=== PATIENT | male | born 1955 | race Caucasian/White ===

== ENCOUNTER 2023-12-16 19:55 | Emergency (ER) | payer MEDICARE ==
[2023-12-16 21:49] VITALS: TEMP 98.5
[2023-12-16] MEDS ORDERED: DUONEB 0.5-3 MG/3 ml Neb IH ONE (21:57)
[2023-12-16] MEDS ORDERED: Sodium Chloride 0.9% 1000 ML 0 ML ONE (22:00)
[2023-12-16] MEDS ORDERED: solu-MEDROL ONE ×2 (22:00→23:01)
[2023-12-16] MEDS ORDERED: Zithromax 500 MG/ 250 ML NaCl Premix 0 MG/0 ML IVPB IV ONE (22:00)
[2023-12-16] MEDS ORDERED: Sterile H2O 10 ml IJ ONE ×2 (22:00→23:01)
[2023-12-16] MEDS: DUONEB 0.5-3 MG/3 ml Neb IH ONE (22:02)
[2023-12-16 22:35] LABS: INFLUENZA B NEGATIVE (NEGATIVE); RESPIRATORY SYNCTIAL VIRUS NEGATIVE (NEGATIVE); SARS-CoV-2 Xpert Express NEGATIVE (NEGATIVE)
[2023-12-16 22:48] LABS: INFLUENZA A POSITIVE (NEGATIVE)
--- NOTE | 2023-12-16 22:54 | ERPHSYRPT ---
- History of Present Illness Time Seen by Provider: 12/16/23 21:19 Source: patient Exam Limitations: no limitations Patient Subjective Stated Complaint: family member I have been around has the flu and now I have body aches, cough, fever, tired Triage Nursing Assessment: Pt ambulated to room. Respirations unlabored. Skin color WNL for race. Pt has intermittent dry nonproductive cough. Lung sounds diminished but clear. Physician History: Patient is here for cough, cold, congestion. Has been going on for 48 hours. Also complains of bodyaches, fever. Patient is continue to smoke cigarettes. Smoked a half a pack of cigarettes today. Patient's grandson tested positive for influenza A today. Therefore they would like him evaluated.Minimal wheezing as I walk in the room. 94% on room air. Sinus rhythm on the monitor Allergies/Adverse Reactions: acetaminophen [From Theraflu Flu-Chest Congestion] Allergy (Mild, Verified 12/16/23 21:19) Itching guaifenesin [From Theraflu Flu-Chest Congestion] Allergy (Mild, Verified 12/16/23 21:19) Itching sulfamethoxazole [From Bactrim] Allergy (Mild, Verified 12/16/23 21:19) Rash trimethoprim [From Bactrim] Allergy (Mild, Verified 12/16/23 21:19) Rash Hx Influenza Vaccination/Date Given: Yes Immunizations Up to Date: Yes Travel Risk - International Travel Have you traveled outside of the country in past 3 weeks: No - Coronavirus Screening Are you exhibiting any of the following symptoms?: Yes Symptoms: Fever, Cough: New Onset, Headaches/Body Aches/Fatigue Close contact with a COVID-19 positive Pt in past 14-21 Days: No - Vaccine Status Have you recieved a Covid-19 vaccination: Yes 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 - Vaccination Dates Dates if Unknown: unknown - Past Medical History Pertinent Past Medical History: Yes Neurological History: TIA ENT History: Cataracts Cardiac History: Arrhythmia, Coronary Artery Disease, Deep Vein Thrombosis, Hypertension, Myocardial Infarction ([place]), Other Respiratory History: Bronchitis, COPD, Pneumonia, Sleep Apnea Endocrine Medical History: No Pertinent History Musculoskeletal History: Rheumatoid Arthritis GI Medical History: No Pertinent History History: Renal Disease Psycho-Social History: No Pertinent History Male Reproductive Disorders: No Pertinent History Other Medical History: chronic hyponatremia, stage 3 CKD, afib, heart murmur - Past Surgical History Past Surgical History: Yes Neuro Surgical History: No Pertinent History Cardiac: Cardiac Catheterization Respiratory: No Pertinent History Gastrointestinal: No Pertinent History Genitourinary: No Pertinent History Musculoskeletal: No Pertinent History Male Surgical History: No Pertinent History - Social History Smoking Status: Current every day smoker How long have you smoked: 52 years Exposure to second hand smoke: Yes Drug Use: none Patient Lives Alone: No - Nursing Vital Signs Nursing Vital Signs: Initial Vital Signs Temperature 98.5 F 12/16/23 21:29 Pulse Rate 80 12/16/23 21:29 Respiratory Rate 20 12/16/23 21:29 Blood Pressure 175/104 12/16/23 21:29 O2 Sat by Pulse Oximetry 93 L 12/16/23 21:29 Pain Scale Pain Intensity 0 - Physical Exam SpO2 Interpretation: normal SpO2: 94 Comments: 12/17/23 00:03 Review of Systems Constitutional: Fever, cough, cold, congestion Respiratory: Negative for shortness of breath. Cardiovascular: Negative for chest pain. Gastrointestinal: Negative for abdominal pain. Genitourinary: Negative for dysuria. Musculoskeletal: Negative for back pain. Skin: Negative for rash. Neurological: Negative for headaches. Psychiatric/Behavioral: Negative for behavioral problems. All other systems reviewed and are negative. Physical Exam Vitals signs and nursing note reviewed. Constitutional: Appearance: Patient is well-developed. HENT: Head: Normocephalic and atraumatic. Eyes: Conjunctiva/sclera: Conjunctivae normal. Neck: Musculoskeletal: Normal range of motion. Trachea: No tracheal deviation. Cardiovascular: Rate and Rhythm: Normal rate. Pulmonary: Effort: Pulmonary effort is normal. No respiratory distress. End expiratory wheezing throughout Abdominal: Palpations: Abdomen is soft. Musculoskeletal: General: No deformity. Skin: General: Skin is warm and dry. Neurological/ Psychiatric: Mental Status: Mental status, behavior, interaction with environment is appropriate for patient's age and condition - Course Nursing assessment & vital signs reviewed: Yes Ordered Tests: Active Orders 24 hr Category Date Time Status EKG-ER Only STAT Care 12/16/23 21:51 Completed IV Insertion STAT Care 12/16/23 21:51 Completed CHEST 1 VIEW (PORTABLE) Stat Exams 12/16/23 21:51 Taken CBC W DIFF Stat Lab 12/16/23 21:51 Ordered CMP Stat Lab 12/16/23 21:51 Ordered Respiratory Therapy Assessment DAILY RT 12/16/23 23:16 Completed Medication Summary Discontinued Medications Generic Name Dose Route Start Last Admin Trade Name Kelin PRN Reason Stop Dose Admin Albuterol/Ipratropium 3 ml 12/16/23 21:51 12/16/23 22:02 Ipratropium/Albuterol Sulfate 3 Ml Ampul.Neb IH 12/16/23 21:52 3 ml STAT ONE Administration Albuterol/Ipratropium Confirm 12/16/23 21:57 Ipratropium/Albuterol Sulfate 3 Ml Ampul.Neb Administered 12/16/23 21:58 Dose 3 ml IH .STK-MED ONE Methylprednisolone Sodium 0 mg 12/16/23 21:51 12/16/23 22:59 Succinate 125 mg/ Sterile IV 12/16/23 21:52 Not Given Water 2 ml STAT ONE Methylprednisolone Sodium 0 mg 12/16/23 22:59 12/16/23 23:05 Succinate 125 mg/ Sterile IM 12/16/23 23:00 125 mg Water 2 ml STAT ONE Administration Sodium Chloride 1,000 mls @ 999 mls/hr 12/16/23 21:51 12/16/23 22:59 Sodium Chloride 0.9% 1000 Ml IV 12/16/23 22:51 Not Given .Q1H1M STA Azithromycin 500 mg in 250 mls @ 250 mls/hr 12/16/23 21:51 12/16/23 23:14 Zithromax 500 Mg/ 250 Ml Nacl Premix IV 12/16/23 22:50 Not Given STAT STA Azithromycin Confirm 12/16/23 22:00 Zithromax 500 Mg/ 250 Ml Nacl Premix Administered 12/16/23 22:01 Dose 500 mg in 250 mls @ ud IV .STK-MED ONE Sodium Chloride Confirm 12/16/23 22:00 Sodium Chloride 0.9% 1000 Ml Administered 12/16/23 22:01 Dose 1,000 mls @ ud .ROUTE .STK-MED ONE Methylprednisolone Sodium Succinate Confirm 12/16/23 22:00 Methylprednis Sod Succ 125 Mg/2 Ml Vial Administered 12/16/23 22:01 Dose 125 mg .ROUTE .STK-MED ONE Methylprednisolone Sodium Succinate Confirm 12/16/23 23:01 Methylprednis Sod Succ 125 Mg/2 Ml Vial Administered 03/11/24 23:02 Dose 125 mg .ROUTE .STK-MED ONE Sterile Water Confirm 12/16/23 22:00 Water For Injection,Sterile 10 Ml Vial Administered 12/16/23 22:01 Dose 10 ml IJ .STK-MED ONE Sterile Water Confirm 12/16/23 23:01 Water For Injection,Sterile 10 Ml Vial Administered 12/16/23 23:02 Dose 10 ml IJ .STK-MED ONE Lab/Rad Data: Laboratory Results 12/16/23 Range/Units 21:50 Influenza Type A Ag POSITIVE A (NEGATIVE) Influenza Type B Ag NEGATIVE (NEGATIVE) RSV (PCR) NEGATIVE (NEGATIVE) SARS-CoV-2 (PCR) NEGATIVE (NEGATIVE) - Progress Progress: improved Progress Note: 12/17/23 00:04 Initial plan for workup including IV, basic labs, EKG, troponin, chest x-ray, influenza swab Patient was given a breathing treatment and influenza A swab returned positive. I did discuss this with the patient. He then went on to decline EKG, troponin, further testing. He was adamant he did not want an IV tonight. We did give an IM dose of steroids in the emergency department. I did discuss risks and benefits of further workup tonight versus going home. I also offered Tamiflu, Z-Marcellus, albuterol to go home with. Patient stated that he would rather just go home. He does not want any Tamiflu, Z-Marcellus to go home with. States that he could be allergic to Tamiflu he is unsure. Therefore, he does want to go home now. Patient will be discharged home at this point in time I did discuss all return precautions with the patient and his daughter. - Departure Departure Disposition: Home Clinical Impression: Flu Condition: Stable Critical Care Time: No Instructions: Cough, Adult (DC) Additional Instructions: You have declined steroids and Tamiflu tonight. This is up to you and you may call your doctor tomorrow to get these prescribed if you change your mind. You may return here sooner for any new or changing symptoms.
[2023-12-16] MEDS: Sodium Chloride 0.9% 1000 ML 1,000 ML IV STA (22:59)
[2023-12-16] MEDS: solu-MEDROL 125 MG, Sterile H2O 10 ml 2 ML IV ONE (22:59)
[2023-12-16] MEDS: solu-MEDROL 125 MG, Sterile H2O 10 ml 2 ML IM ONE (23:05)
[2023-12-16] MEDS: Zithromax 500 MG/ 250 ML NaCl Premix 500 MG/250 ML IVPB IV STA (23:14)
[2023-12-16 23:41] VITALS: BP 142/104; PULSE 80; RESP 18
[2023-12-17 00:03] VITALS: O2SAT 94
--- NOTE | 2023-12-17 08:53 | XRAY ---
Indication: Pneumonia. Comparison: None Portable chest hyperinflated and clear. Heart and mediastinal structures within normal limits. Bony thorax intact with osteopenia and mild degenerative changes. Impression: Nonacute hyperinflated chest with chronic features.
== END 2023-12-16 23:32 | disposition home or self-care (01) ==
LOC: ED 19:55
DX: J10.1 Influenza due to other identified influenza virus with other respiratory manifestations (principal); F17.200 Nicotine dependence, unspecified, uncomplicated
CPT/HCPCS: 0241U; 71045; 94640; 96372; 99284; J0456; J2930; A9270-GY

== ENCOUNTER 2023-12-20 13:19 | Emergency (ER) | payer MEDICARE ==
--- NOTE | 2023-12-20 13:25 | ERPHSYRPT ---
- History of Present Illness Time Seen by Provider: 12/20/23 13:25 Source: patient, family, EMS Exam Limitations: clinical condition Physician History: This is a 68-year-old white male patient was brought into the emergency department by the paramedics who provided additional, independent history because the patient was somewhat confused and altered mentally. Patient was seen here in our emergency department on 12/10/2023 and again on 12/16/2023. He was diagnosed with influenza A on 12/16/2023 but refused medication and wanted to go home. The medication he refused included steroids, albuterol, Z-Marcellus and Tamiflu. Patient has a history of atrial fibrillation, coronary artery disease, DVT, hypertension, COPD, rheumatoid arthritis, chronic hyponatremia, stage III k idney disease and TIAs. Patient was at home today and felt weak and suddenly went to the ground. Patient states that he was alert and he just felt overwhelmingly weak. He did not hit his head. Patient currently has no complaints of headache, neck pain, chest pain, shortness of breath, abdominal pain or pain in any limb. Patient is on medication but he and his daughter do not recall the names of his medication. Patient states that he does not consume alcohol, and he does not use illicit drugs. Occurred: just prior to arrival Reason for Fall: unknown Injuries/Pain Location: no injury Loss of Consciousness: unsure Severity of Pain-Max: none Severity of Pain-Current: none Associated Symptoms (Fall): confusion (Altered mental status), other (Weakness) Allergies/Adverse Reactions: acetaminophen [From Theraflu Flu-Chest Congestion] Allergy (Mild, Verified 12/20/23 13:44) Itching guaifenesin [From Theraflu Flu-Chest Congestion] Allergy (Mild, Verified 12/20/23 13:44) Itching sulfamethoxazole [From Bactrim] Allergy (Mild, Verified 12/20/23 13:44) Rash trimethoprim [From Bactrim] Allergy (Mild, Verified 12/20/23 13:44) Rash Home Medications: Unobtainable 12/20/23 [History] Hx Influenza Vaccination/Date Given: Yes Travel Risk - International Travel Have you traveled outside of the country in past 3 weeks: No - Coronavirus Screening Are you exhibiting any of the following symptoms?: No Close contact with a COVID-19 positive Pt in past 14-21 Days: No - Vaccine Status Have you recieved a Covid-19 vaccination: Yes Examination Scorer: Unknown - Vaccination Dates Dates if Unknown: unknown - Review of Systems Constitutional: Weakness Eyes: No Symptoms Ears, Nose, & Throat: No Symptoms Respiratory: No Symptoms Cardiac: No Symptoms Abdominal/Gastrointestinal: No Symptoms Genitourinary Symptoms: No Symptoms Musculoskeletal: No Symptoms Skin: No Symptoms Neurological: Lethargy, Other (Weakness) Psychological: No Symptoms Endocrine: No Symptoms Hematologic/Lymphatic: No Symptoms Immunological/Allergic: No Symptoms All Other Systems: Reviewed and Negative - Past Medical History Pertinent Past Medical History: Yes Neurological History: TIA ENT History: Cataracts Cardiac History: Arrhythmia, Coronary Artery Disease, Deep Vein Thrombosis, Hypertension, Myocardial Infarction (SC), Other Respiratory History: Bronchitis, COPD, Pneumonia, Sleep Apnea Endocrine Medical History: No Pertinent History Musculoskeletal History: Rheumatoid Arthritis GI Medical History: No Pertinent History History: Renal Disease Psycho-Social History: No Pertinent History Male Reproductive Disorders: No Pertinent History Other Medical History: chronic hyponatremia, stage 3 CKD, afib, heart murmur - Past Surgical History Past Surgical History: Yes Neuro Surgical History: No Pertinent History Cardiac: Cardiac Catheterization Respiratory: No Pertinent History Gastrointestinal: No Pertinent History Genitourinary: No Pertinent History Musculoskeletal: No Pertinent History Male Surgical History: No Pertinent History - Social History Smoking Status: Current every day smoker How long have you smoked: 52 years Exposure to second hand smoke: Yes Drug Use: none Patient Lives Alone: No - Nursing Vital Signs Nursing Vital Signs: Initial Vital Signs Temperature 97.6 F 12/20/23 13:20 Pulse Rate 70 12/20/23 13:20 Respiratory Rate 16 12/20/23 13:20 Blood Pressure 90/50 12/20/23 13:20 Pain Scale Pain Intensity 0 - Mirta Coma Score Best Eye Response ([place]): (4) open spontaneously Best Verbal Response (Mirta): (5) oriented Best Motor Response ([place]): (6) obeys commands Mirta Total: 15 - Physical Exam General Appearance: no apparent distress, alert, thin Head Injury: no evidence of injury Eye Exam: PERRL/EOMI, eyes nml inspection ENT Exam: airway nml, nml ext.inspection, No evidence of ENT injury Neck Exam: supple, trachea midline, full range of motion, normal alignment, normal inspection Respiratory/Chest Exam: normal breath sounds, No chest tenderness, No respiratory distress, No ecchymosis, No crepitus Cardiovascular Exam: normal heart sounds, regular rate/rhythm Gastrointestinal Exam: soft, normal bowel sounds, No tenderness Rectal Exam: not done Back Exam: normal inspection, normal range of motion, vertebral tenderness, No CVA tenderness Extremity Exam: normal range of motion, pelvis stable, No deformities Neurologic Exam: alert, oriented x 3, cooperative, photogrammetrist II-XII nml as tested, normal mood/affect Skin Exam: cyanosis (? Generalized), other (Cool skin generalized) SpO2 Interpretation: normal O2 Delivery: Room Air - Course Nursing assessment & vital signs reviewed: Yes EKG Interpreted by Me: RATE (64), Sinus Rhythm, NORMAL AXIS, NORMAL INTERVALS, NORMAL QRS, NORMAL ST-T, Other (No acute ischemic changes on today's twelve-lead EKG. No comparison twelve-lead EKG available.) Ordered Tests: Active Orders 24 hr Category Date Time Status Passenger Car Upholsterer Apprentice STAT Care 12/20/23 14:25 Active Cath for Specimen-Straight STAT Care 12/20/23 14:25 Active Clean Catch Urine Specimen STAT Care 12/20/23 14:23 Active EKG-ER Only STAT Care 12/20/23 14:23 Active IV Insertion STAT Care 12/20/23 14:23 Active Pulse Oximetry (ED) STAT Care 12/20/23 14:23 Active CHEST 1 VIEW (PORTABLE) Stat Exams 12/20/23 14:24 Completed HEAD WITHOUT CONTRAST [CT] Stat Exams 12/20/23 14:24 Completed ABG [ARTERIAL BLOOD GASES] Stat Lab 12/20/23 14:05 Completed BLOOD CULTURE Stat Lab 12/20/23 15:44 Received CBC W DIFF Stat Lab 12/20/23 15:25 Completed CMP Stat Lab 12/20/23 15:25 Completed ETHYL ALCOHOL Stat Lab 12/20/23 15:25 Completed MAG [MAGNESIUM] Stat Lab 12/20/23 16:23 Completed PROTIME WITH INR Stat Lab 12/20/23 15:25 Completed UA W/RFX UR CULTURE Stat Lab 12/20/23 17:58 Completed Urine Triage Profile Stat Lab 12/20/23 17:58 Completed EKG STAT RT 12/20/23 14:04 Active Medication Summary Discontinued Medications Generic Name Dose Route Start Last Admin Trade Name Freq PRN Reason Stop Dose Admin Sodium Chloride 1,000 mls @ 999 mls/hr 12/20/23 14:23 12/20/23 15:53 Sodium Chloride 0.9% 1000 Ml IV 12/20/23 15:23 Infused .Q1H1M STA Infusion Sodium Chloride Confirm 12/20/23 14:32 Sodium Chloride 0.9% 1000 Ml Administered 12/20/23 14:33 Dose 1,000 mls @ ud .ROUTE .STK-MED ONE Lab/Rad Data: Laboratory Result Diagrams 12/20/23 15:25 12/20/23 15:25 Laboratory Results 12/20/23 12/20/23 12/20/23 Range/Units 17:58 17:58 16:23 WBC (4.0-10.5) x10^3/uL RBC (4.1-5.6) x10^6/uL Hgb (12.5-18.0) g/dL Hct (42-50) % MCV (78-100) fL MCH (26-32) pg MCHC (32-36) g/dL RDW (11.5-14.0) % Plt Count (150-450) x10^3/uL MPV (7.5-11.0) fL Gran % (36.0-66.0) % Immature Gran % (Auto) (0.00-0.4) % Nucleat RBC Rel Count (0.00-0.1) % Eos # (Auto) (0-0.5) x10^3/uL Immature Gran # (Auto) (0.00-0.03) x10^3u/L Absolute Lymphs (auto) (1.0-4.6) x10^3/uL Absolute Monos (auto) (0.0-1.3) x10^3/uL Absolute Nucleated RBC (0.00-0.01) x10^3u/L Lymphocytes % (24.0-44.0) % Monocytes % (0.0-12.0) % Eosinophils % (0.00-5.0) % Basophils % (0.0-0.4) % Absolute Granulocytes (1.4-6.9) x10^3/uL Basophils # (0-0.4) x10^3/uL PT (9.4-12.5) SECONDS INR (0.8-3.0) Puncture Site pCO2 (35-45) mmHg pO2 (75-100) mmHg Base Excess (-2.0-2.0) O2 Saturation (94-100) g/dF ABG pH (7.35-7.45) ABG HCO3 (22-28) ABG O2 Sat (Measured) (95-100) % Jhon Test A-a Gradient a/A Ratio Hemoglobin Carboxyhemoglobin (0.0-6.9) % THgb Methemoglobin (1.4-1.5) % Potassium (3.5-5.1) Temperature C POC O2 Flow Rate % Sodium (135-145) mmol/L Chloride (98-107) mmol/L Carbon Dioxide (22-30) mmol/L Anion Gap (5-15) MEQ/L BUN (9-20) mg/dL Creatinine (0.66-1.25) mg/dL Estimated GFR ML/MIN Glucose (74-106) mg/dL Calcium (8.4-10.2) mg/dL Magnesium 2.0 (1.6-2.3) mg/dL Total Bilirubin (0.2-1.3) mg/dL AST (17-59) U/L ALT (0-50) U/L Alkaline Phosphatase (38-126) U/L Ammonia (9-30) umol/L Serum Total Protein (6.3-8.2) g/dL Albumin (3.5-5.0) g/dL Urine Color Dark Yellow (Yellow) Urine Appearance Cloudy A (Clear) Urine pH 5.5 (4.6-8.0) Ur Specific [place] 1.020 (1.005-1.030) Urine Protein 300 A (Negative) Urine Glucose (UA) Negative (Negative) mg/dL Urine Ketones Trace A (Negative) Urine Blood Negative (Negative) Urine Nitrite Negative (Negative) Urine Bilirubin Negative (Negative) Urine Urobilinogen 1.0 A (0.2) mg/dL Ur Leukocyte Esterase Negative (Negative) U Hyaline Cast (Auto) 0-2 (0-2) /LPF Urine Microscopic RBC 0-2 (0-5) /HPF Urine Microscopic WBC 0-2 (0-5) /HPF Ur Epithelial Cells Rare (None Seen) /HPF Urine Bacteria Few A (None Seen) /HPF Granular Casts 0-2 A (None Seen) /LPF Urine Culture Reflexed NO (NO) Urine Opiates Level NEGATIVE (NEGATIVE) Ur Methadone NEGATIVE (NEGATIVE) Urine Barbiturates NEGATIVE (NEGATIVE) Ur Phencyclidine (PCP) NEGATIVE (NEGATIVE) Urine Amphetamine NEGATIVE (NEGATIVE) U Benzodiazepine Level NEGATIVE (NEGATIVE) Urine Cocaine NEGATIVE (NEGATIVE) Urine Marijuana (THC) NEGATIVE (NEGATIVE) Ethyl Alcohol (0-10) mg/dL Influenza Type A Ag (NEGATIVE) Influenza Type B Ag (NEGATIVE) RSV (PCR) (NEGATIVE) SARS-CoV-2 (PCR) (NEGATIVE) 12/20/23 12/20/23 12/20/23 Range/Units 15:46 15:25 15:25 WBC (4.0-10.5) x10^3/uL RBC (4.1-5.6) x10^6/uL Hgb (12.5-18.0) g/dL Hct (42-50) % MCV (78-100) fL MCH (26-32) pg MCHC (32-36) g/dL RDW (11.5-14.0) % Plt Count (150-450) x10^3/uL MPV (7.5-11.0) fL Gran % (36.0-66.0) % Immature Gran % (Auto) (0.00-0.4) % Nucleat RBC Rel Count (0.00-0.1) % Eos # (Auto) (0-0.5) x10^3/uL Immature Gran # (Auto) (0.00-0.03) x10^3u/L Absolute Lymphs (auto) (1.0-4.6) x10^3/uL Absolute Monos (auto) (0.0-1.3) x10^3/uL Absolute Nucleated RBC (0.00-0.01) x10^3u/L Lymphocytes % (24.0-44.0) % Monocytes % (0.0-12.0) % Eosinophils % (0.00-5.0) % Basophils % (0.0-0.4) % Absolute Granulocytes (1.4-6.9) x10^3/uL Basophils # (0-0.4) x10^3/uL PT 12.7 H (9.4-12.5) SECONDS INR 1.18 (0.8-3.0) Puncture Site pCO2 (35-45) mmHg pO2 (75-100) mmHg Base Excess (-2.0-2.0) O2 Saturation (94-100) g/dF ABG pH (7.35-7.45) ABG HCO3 (22-28) ABG O2 Sat (Measured) (95-100) % Jhon Test A-a Gradient a/A Ratio Hemoglobin Carboxyhemoglobin (0.0-6.9) % THgb Methemoglobin (1.4-1.5) % Potassium (3.5-5.1) Temperature C POC O2 Flow Rate % Sodium (135-145) mmol/L Chloride (98-107) mmol/L Carbon Dioxide (22-30) mmol/L Anion Gap (5-15) MEQ/L BUN (9-20) mg/dL Creatinine (0.66-1.25) mg/dL Estimated GFR ML/MIN Glucose (74-106) mg/dL Calcium (8.4-10.2) mg/dL Magnesium (1.6-2.3) mg/dL Total Bilirubin (0.2-1.3) mg/dL AST (17-59) U/L ALT (0-50) U/L Alkaline Phosphatase (38-126) U/L Ammonia < 9 L (9-30) umol/L Serum Total Protein (6.3-8.2) g/dL Albumin (3.5-5.0) g/dL Urine Color (Yellow) Urine Appearance (Clear) Urine pH (4.6-8.0) Ur Specific [place] (1.005-1.030) Urine Protein (Negative) Urine Glucose (UA) (Negative) mg/dL Urine Ketones (Negative) Urine Blood (Negative) Urine Nitrite (Negative) Urine Bilirubin (Negative) Urine Urobilinogen (0.2) mg/dL Ur Leukocyte Esterase (Negative) U Hyaline Cast (Auto) (0-2) /LPF Urine Microscopic RBC (0-5) /HPF Urine Microscopic WBC (0-5) /HPF Ur Epithelial Cells (None Seen) /HPF Urine Bacteria (None Seen) /HPF Granular Casts (None Seen) /LPF Urine Culture Reflexed (NO) Urine Opiates Level (NEGATIVE) Ur Methadone (NEGATIVE) Urine Barbiturates (NEGATIVE) Ur Phencyclidine (PCP) (NEGATIVE) Urine Amphetamine (NEGATIVE) U Benzodiazepine Level (NEGATIVE) Urine Cocaine (NEGATIVE) Urine Marijuana (THC) (NEGATIVE) Ethyl Alcohol (0-10) mg/dL Influenza Type A Ag POSITIVE A (NEGATIVE) Influenza Type B Ag NEGATIVE (NEGATIVE) RSV (PCR) NEGATIVE (NEGATIVE) SARS-CoV-2 (PCR) NEGATIVE (NEGATIVE) 12/20/23 12/20/23 12/20/23 Range/Units 15:25 15:25 14:05 WBC 11.7 H (4.0-10.5) x10^3/uL RBC 4.21 (4.1-5.6) x10^6/uL Hgb 13.2 (12.5-18.0) g/dL Hct 39.1 L (42-50) % MCV 92.9 (78-100) fL MCH 31.4 (26-32) pg MCHC 33.8 (32-36) g/dL RDW 13.8 (11.5-14.0) % Plt Count 158 (150-450) x10^3/uL MPV 9.9 (7.5-11.0) fL Gran % 85.6 H (36.0-66.0) % Immature Gran % (Auto) 0.9 H (0.00-0.4) % Nucleat RBC Rel Count 0.0 (0.00-0.1) % Eos # (Auto) 0.01 (0-0.5) x10^3/uL Immature Gran # (Auto) 0.10 H (0.00-0.03) x10^3u/L Absolute Lymphs (auto) 0.87 L (1.0-4.6) x10^3/uL Absolute Monos (auto) 0.67 (0.0-1.3) x10^3/uL Absolute Nucleated RBC 0.00 (0.00-0.01) x10^3u/L Lymphocytes % 7.4 L (24.0-44.0) % Monocytes % 5.7 (0.0-12.0) % Eosinophils % 0.1 (0.00-5.0) % Basophils % 0.3 (0.0-0.4) % Absolute Granulocytes 10.00 H (1.4-6.9) x10^3/uL Basophils # 0.03 (0-0.4) x10^3/uL PT (9.4-12.5) SECONDS INR (0.8-3.0) Puncture Site RIGHT BRACHIAL pCO2 32 L (35-45) mmHg pO2 73 L (75-100) mmHg Base Excess -1.6 (-2.0-2.0) O2 Saturation 94.3 (94-100) g/dF ABG pH 7.44 (7.35-7.45) ABG HCO3 21.7 L (22-28) ABG O2 Sat (Measured) 96.2 (95-100) % Jhon Test NOT APPLICABLE A-a Gradient 37 a/A Ratio 0.66 Hemoglobin 13.4 Carboxyhemoglobin 1.4 (0.0-6.9) % THgb Methemoglobin 0.6 L (1.4-1.5) % Potassium 4.5 4.9 (3.5-5.1) Temperature 37.0 C POC O2 Flow Rate 21 % Sodium 127 L (135-145) mmol/L Chloride 97 L (98-107) mmol/L Carbon Dioxide 23 (22-30) mmol/L Anion Gap 12.3 (5-15) MEQ/L BUN 38 H (9-20) mg/dL Creatinine 2.03 H (0.66-1.25) mg/dL Estimated GFR 35.3 ML/MIN Glucose 126 H (74-106) mg/dL Calcium 8.3 L (8.4-10.2) mg/dL Magnesium (1.6-2.3) mg/dL Total Bilirubin 0.30 (0.2-1.3) mg/dL AST 33 (17-59) U/L ALT 18 (0-50) U/L Alkaline Phosphatase 58 (38-126) U/L Ammonia (9-30) umol/L Serum Total Protein 7.5 (6.3-8.2) g/dL Albumin 3.6 (3.5-5.0) g/dL Urine Color (Yellow) Urine Appearance (Clear) Urine pH (4.6-8.0) Ur Specific [place] (1.005-1.030) Urine Protein (Negative) Urine Glucose (UA) (Negative) mg/dL Urine Ketones (Negative) Urine Blood (Negative) Urine Nitrite (Negative) Urine Bilirubin (Negative) Urine Urobilinogen (0.2) mg/dL Ur Leukocyte Esterase (Negative) U Hyaline Cast (Auto) (0-2) /LPF Urine Microscopic RBC (0-5) /HPF Urine Microscopic WBC (0-5) /HPF Ur Epithelial Cells (None Seen) /HPF Urine Bacteria (None Seen) /HPF Granular Casts (None Seen) /LPF Urine Culture Reflexed (NO) Urine Opiates Level (NEGATIVE) Ur Methadone (NEGATIVE) Urine Barbiturates (NEGATIVE) Ur Phencyclidine (PCP) (NEGATIVE) Urine Amphetamine (NEGATIVE) U Benzodiazepine Level (NEGATIVE) Urine Cocaine (NEGATIVE) Urine Marijuana (THC) (NEGATIVE) Ethyl Alcohol < 10 (0-10) mg/dL Influenza Type A Ag (NEGATIVE) Influenza Type B Ag (NEGATIVE) RSV (PCR) (NEGATIVE) SARS-CoV-2 (PCR) (NEGATIVE) - Progress Progress: improved Progress Note: 12/20/23 18:58 This patient's medical issue is 1 of moderate complexity. Level of complexity and the workup performed is based on review of the patient's past medical history, review of the patient's medication list, review the patient's drug allergy list, physical findings on examination and history of present illness. Workup in this patient includes ABG, placement of intravenous line, infusion of normal saline solution, CBC, CMP, CT scan of the head, twelve-lead EKG urinalysis. I interpreted the patient's laboratory data results. There are no acute or em ergent medical issues based on his laboratory results. Patient has chronic hyponatremia. CT scan of the head without contrast was interpreted by the radiologist and I reviewed the impression. There is no evidence of any acute intracranial abnormality. There is a nonacute senile brain. 12/20/23 19:11 Patient is doing much better. He wants to go home. He is stable. Counseled pt/family regarding: lab results, diagnosis, need for follow-up, rad results Medical Desision Making - Independent Historian Additional History obtained from: Family - Diagnostic Testing Diagnostic test were ordered, analyzed, and reviewed by me: Yes Radiological Interpretation: Reviewed by me, Teleradiologist Report - Risk of complications Low Risk: Low risk of morbidity from additional dx testing or treatment - Departure Departure Disposition: Home Clinical Impression: Weakness, Hyponatremia Condition: Stable Critical Care Time: No Referrals: LIU MANUEL, CONDITIONING COACH [Primary Care Provider] - Follow up/PCP as directed Additional Instructions: Drink plenty of fluids. Take your medications as prescribed. Call your primary care provider on 12/23/2023 to make arrangements for further evaluation and management.
[2023-12-20 13:51] VITALS: TEMP 97.6
[2023-12-20 14:06] LABS: A-aADO2 37; ABG HEMOGLOBIN 13.4; ABG POTASSIUM 4.9 (3.5-5.1); ABG SITE RIGHT BRACHIAL; ARTERIAL BLD GAS O2 SATURATION 96.2 % (95-100); ARTERIAL BLOOD GAS BASE EXCESS -1.6 (-2.0-2.0); ARTERIAL BLOOD GAS FIO2 21 %; ARTERIAL BLOOD GAS PCO2 32 mmHg (35-45); ARTERIAL BLOOD GAS PO2 73 mmHg (75-100); ARTERIAL BLOOD GAS pH 7.44 (7.35-7.45); CARBOXYHEMOGLOBIN 1.4 % THgb (0.0-6.9); HCO3- 21.7 (22-28); HGB O2 SAT 94.3 g/dF (94-100); Methhemoglobin 0.6 % (1.4-1.5); paO2 pAO1 0.66
[2023-12-20] MEDS ORDERED: Sodium Chloride 0.9% 1000 ML 1,000 ML ONE (14:32)
[2023-12-20] MEDS: Sodium Chloride 0.9% 1000 ML 1,000 ML IV STA (14:45)
--- NOTE | 2023-12-20 14:54 | XRAY ---
Indication: Short of breath. Portable chest unchanged compared to ER exam 4 days ago. Lungs remain hyperinflated and clear. Heart not enlarged. No new/acute findings.
--- NOTE | 2023-12-20 14:56 | XRAY ---
Indication: Syncope. Multiple contiguous axial images obtained the head without contrast. Comparison: None Age-appropriate global atrophy and mild periventricular degenerative micro-ischemia bilaterally. Thalamus demonstrates remote lacunar infarcts bilaterally. No acute intracranial hemorrhage, abnormal extra-axial fluid collection, or mass effect. Fourth ventricle is midline without hydrocephalus. Bony calvarium intact. Moderate mucoperiosteal thickening left maxillary and lesser degree both ethmoid/sphenoid sinuses with air-fluid leveling. Mastoid air cells are clear. Impression: Nonacute senile brain. Bilateral thalamic remote lacunar infarcts. Incidental paranasal sinus disease.
[2023-12-20 15:56] LABS: BASOPHIL % 0.3 % (0.0-0.4); Basophil (Absolute #) 0.03 x10^3/uL (0-0.4); Eosinophil % 0.1 % (0.00-5.0); Eosinophil (Absolute #) 0.01 x10^3/uL (0-0.5); Hematocrit 39.1 % (42-50); Hemoglobin 13.2 g/dL (12.5-18.0); IMMATURE GRAN % 0.9 % (0.00-0.4); Lymphocyte (Absolute #) 0.87 x10^3/uL (1.0-4.6); Lymphocytes % 7.4 % (24.0-44.0); Mean Cell Volume 92.9 fL (78-100); Mean Corpuscular Hemoglobin 31.4 pg (26-32); Mean Corpuscular Hgb Concent. 33.8 g/dL (32-36); Mean Platelet Volume 9.9 fL (7.5-11.0); Monocyte (Absolute #) 0.67 x10^3/uL (0.0-1.3); Monocytes % 5.7 % (0.0-12.0); Neutrophil % 85.6 % (36.0-66.0); Platelet Count 158 x10^3/uL (150-450); Red Blood Count 4.21 x10^6/uL (4.1-5.6); Red Cell Distribution Width 13.8 % (11.5-14.0); White Blood Count 11.7 x10^3/uL (4.0-10.5)
[2023-12-20 16:08] LABS: INR 1.18 (0.8-3.0); PROTIME 12.7 SECONDS (9.4-12.5)
[2023-12-20 16:10] LABS: ALBUMIN 3.6 g/dL (3.5-5.0); ALKALINE PHOSPHATASE 58 U/L (38-126); ANION GAP 12.3 MEQ/L (5-15); BLOOD UREA NITROGEN 38 mg/dL (9-20); CHLORIDE 97 mmol/L (98-107); Calcium 8.3 mg/dL (8.4-10.2); Carbon Dioxide 23 mmol/L (22-30); Creatinine 1 2.03 mg/dL (0.66-1.25); EST GLOMERULAR FILTRATION RATE 35.3 ML/MIN; ETHYL ALCOHOL < 10 mg/dL (0-10); Glucose 126 mg/dL (74-106); Potassium 4.5 mmol/L (3.5-5.1); SGOT/AST 33 U/L (17-59); SGPT/ALT 18 U/L (0-50); SODIUM 127 mmol/L (135-145); Total Protein 7.5 g/dL (6.3-8.2)
[2023-12-20 16:29] LABS: INFLUENZA B NEGATIVE (NEGATIVE); RESPIRATORY SYNCTIAL VIRUS NEGATIVE (NEGATIVE); SARS-CoV-2 Xpert Express NEGATIVE (NEGATIVE)
[2023-12-20 16:31] LABS: INFLUENZA A POSITIVE (NEGATIVE)
[2023-12-20 17:36] VITALS: BP 130/99
[2023-12-20 18:39] LABS: Amphetamine,Urine NEGATIVE (NEGATIVE); Barbiturate,Urine NEGATIVE (NEGATIVE); Benzodiazepine,Urine NEGATIVE (NEGATIVE); Methadone,Urine NEGATIVE (NEGATIVE); Opiate,Urine NEGATIVE (NEGATIVE); PCP,Urine NEGATIVE (NEGATIVE); THC,Urine NEGATIVE (NEGATIVE)
[2023-12-20 18:44] LABS: Cocaine,Urine NEGATIVE (NEGATIVE)
[2023-12-20 18:47] VITALS: PULSE 63; RESP 21; O2SAT 95
[2023-12-20 18:51] LABS: Appearance Cloudy (Clear); Bacteria Few /HPF (None Seen); Bilirubin Negative (Negative); Blood Negative (Negative); Epithelial Cells Rare /HPF (None Seen); Glucose, Urine Negative (Negative); Ketones Trace (Negative); Leukocyte Esterase Negative (Negative); Nitrite Negative (Negative); Ph 5.5 (4.6-8.0); Protein,Urine Dip 300 (Negative); RBC 0-2 /HPF (0-5); WBC 0-2 /HPF (0-5)
[2023-12-20 18:52] LABS: ADD URINE CULTURE? NO (NO); Granular Casts 0-2 /LPF (None Seen); Hyaline Casts 0-2 /LPF (0-2)
== END 2023-12-20 19:29 | disposition home or self-care (01) ==
LOC: ED 13:19
DX: R53.1 Weakness (principal); E87.1 Hypo-osmolality and hyponatremia; I12.9 Hypertensive chronic kidney disease with stage 1 through stage 4 chronic kidney disease, or unspecified chronic kidney disease; N18.30 Chronic kidney disease, stage 3 unspecified; Z72.0 Tobacco use; Z20.828 Contact with and (suspected) exposure to other viral communicable diseases
CPT/HCPCS: 0241U; 36000; 36415; 36600; 70450; 71045; 80053; 80307; 81001; 82077; 82140; 82375; 82803; 83735; 85025; 85610; 87040; 93005; 93041; 94760; 96360; 99284